=== PATIENT | male | born 1970 | race Caucasian/White ===

== ENCOUNTER 2021-02-09 18:14 | Emergency (ER) | payer BC ==
[~2021-02-09] VITALS: Ht 162.6 cm; Wt 83.9 kg
[2021-02-09 18:21] VITALS: BP_SYST 128
--- NOTE | 2021-02-09 18:21 | NUR ---
Patient to ER bed 01 to gown for evaluation. Side rails up.
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
--- NOTE | 2021-02-09 18:45 | NUR ---
wounds irrigated with sterile water and betadine
--- NOTE | 2021-02-09 19:12 | NUR ---
report to May
--- NOTE | 2021-02-09 19:35 | NUR ---
ER Dr. Daniel at bedside examining patient.
[2021-02-09] MEDS ORDERED: LIDOCAINE 1% 10 MG/ML, 20 ML MDV INJ ONE (19:45)
[2021-02-09] MEDS ORDERED: DIPH-TET-PERTUS Vaccine 0.5 ML VIAL (ADACEL) I.M. ONE (19:45)
--- NOTE | 2021-02-09 20:35 | NUR ---
Patient has a 2.5 cm laceration to right lower leg. Dr. Daniel applied sutures using sterile technique. Edges well approximated. Site cleansed with NSS+ Betadine. Dressing of NONE-Adhesive guaze applied to site. No bleeding noted. Pt tolerated well.
[2021-02-09] MEDS ORDERED: CEPH250C PO (20:48)
[2021-02-09] MEDS ORDERED: HYDR-3917 PO (20:48)
[2021-02-09] MEDS ORDERED: BACI15OI13 TP (20:48)
[2021-02-09] MEDS ORDERED: BACITRACIN 1 GM OINT TP ONE (20:58)
[2021-02-09 21:13] VITALS: BP_SYST 128
--- NOTE | 2021-02-09 21:13 | NUR ---
Patient given written and verbal discharge instructions and verbalizes understanding. ER MD discussed with patient the results and treatment provided. Patient in stable condition. ID arm band removed. Rx of Bacitricin, Keflex and [place] given. Patient educated on pain management and to follow up with PMD. Pain Scale 1/10. Opportunity for questions provided and answered. Medication side effect fact sheet provided.
== END 2021-02-09 21:13 | disposition home or self-care (01) ==
LOC: SED 18:14
DX: S81.811A Laceration without foreign body, right lower leg, initial encounter (principal); S80.01XA Contusion of right knee, initial encounter; S50.811A Abrasion of right forearm, initial encounter; Z79.899 Other long term (current) drug therapy; K21.9 Gastro-esophageal reflux disease without esophagitis; E11.9 Type 2 diabetes mellitus without complications; E78.00 Pure hypercholesterolemia, unspecified; V28.0XXA Motorcycle driver injured in noncollision transport accident in nontraffic accident, initial encounter; Y93.89 Activity, other specified; Y92.89 Other specified places as the place of occurrence of the external cause; Y99.8 Other external cause status
CPT/HCPCS: 12002; 73560; 90471; 90715; 99283; J2001